=== PATIENT | male | born 1955 | race Caucasian/White ===

== ENCOUNTER → 2018-02-09 | Outpatient (CLI) | payer OTHER | END | disposition home or self-care (01) | LOC: SHCH 14:18 | PROVIDERS: ATTEND Internal Medicine Cardiovascular Disease | DX: I87.2 Venous insufficiency (chronic) (peripheral) (principal) | CPT/HCPCS: 93970 ==

== ENCOUNTER 2019-11-23 07:22 | Day surgery (SDC) | payer MEDICARE ==
[2019-11-20 13:32] LABS: BASOPHILS % (AUTO) 0.8 % (0.0-5.0); EOSINOPHILS % (AUTO) 4.4 % (0.0-8.0); HEMATOCRIT 45.6 % (42-54); LYMPHOCYTES % (AUTO) 22.1 % (21.0-51.0); MEAN CORPUSCULAR HEMOGLOBIN 29.9 pg (27.0-33.0); MEAN CORPUSCULAR HGB CONC 32.9 g/dL (32.0-36.0); MEAN CORPUSCULAR VOLUME 90.8 fL (79-99); MONOCYTES % (AUTO) 7.4 % (3.0-13.0); NEUTROPHILS % (AUTO) 64.3 % (40.0-77.0); PLATELET COUNT (AUTO) 239 K/uL (130-400); RED BLOOD CELL COUNT(AUTO) 5.02 MIL/uL (4.50-6.20); RED CELL DISTRIBUTION WIDTH 14.4 % (11.0-15.5); WHITE BLOOD COUNT (AUTO) 7.9 K/uL (4.8-10.8)
[2019-11-20 13:41] LABS: APPEARANCE,URINE Clear (CLEAR); BILIRUBIN,URINE Negative (NEGATIVE); COLOR,URINE Yellow (YELLOW); GLUCOSE, URINE (UA) 500 mg/dL (NEGATIVE); KETONES,URINE Negative (NEGATIVE); LEUKOCYTE ESTERASE ,URINE Negative (NEGATIVE); NITRATE,URINE Negative (NEGATIVE); OCCULT BLOOD,URINE Negative (NEGATIVE); PROTEIN,URINE Trace mg/dL (NEGATIVE)
[2019-11-20 13:44] LABS: CREATININE 1.4 mg/dL (0.5-1.5); POTASSIUM 4.4 mmol/L (3.5-5.1)
[2019-11-20 13:46] LABS: INR 0.92 (0.85-1.15)
[2019-11-20 13:47] LABS: BACTERIA,URINE Rare /HPF (None Seen); RBC,URINE 0-1 /HPF (0-1); SQUAMOUS EPITHELIAL CELL,UR Rare /HPF (0-2); WBC,URINE 0-1 /HPF (0-1)
[2019-11-20 13:51] VITALS: BP 173/92
--- NOTE | 2019-11-22 16:05 | NUR ---
EKG ABNORMAL EKG REPORTED TO RADHA BURROUGHS TO PROCEED WITH SURGERY
[2019-11-23] VITALS (25 sets, daily range): BP systolic 141–190; BP diastolic 78–116
[~2019-11-23] VITALS: Ht 198.1 cm; Wt 132.0 kg
[~2019-11-23 07:22] MED LIST: CARV12.511 PO; CEFTRIAXONE SODIUM 1 GM IVP SCH; EZET10TA48 PO; GENTAMICIN SULFATE 400 MG in SODIUM CHLORIDE 0.9% 100 ML IV SCH; GLIM2TAB30 PO; LOSA1TAB37 PO; METF-527 PO; TAMS-1 PO; TRIA15CR48 TP
[2019-11-23] MEDS ORDERED: SODIUM CHLORIDE 0.9% 1000ML 1,000 ML IV ONE (07:40)
[2019-11-23] MEDS ORDERED: PROPOFOL 10 MG/ML 20ML VIAL IV ONE (08:02)
[2019-11-23] MEDS ORDERED: LIDOCAINE PF 2% 5ML ABBOJECT ONE (08:02)
[2019-11-23] MEDS ORDERED: FENTANYL CITRATE PF 50 MCG/1 ML 2ML VIAL ONE ×2 (08:03→09:49)
[2019-11-23] MEDS ORDERED: EPHEDRINE SULFATE 50 MG/ML AMPULE ONE (09:04)
--- NOTE | 2019-11-23 11:05 | NUR ---
PT DRESSING INTACT RT CHEST, DRY. Addendum: 11/23/19 at 1308 by ELIZABETH APPIAH RN RN WRONG PT
[2019-11-23] MEDS ORDERED: ONDANSETRON HCL 4 MG/2 ML VIAL ONE (11:06)
--- NOTE | 2019-11-23 11:08 | NUR ---
4mg of zofran given slow IVP for nausea only
[2019-11-23] MEDS ORDERED: LABETALOL 20 MG/4 ML DISP.SYRIN IV ONE (11:19)
[2019-11-23] MEDS ORDERED: HYDRALAZINE HCL 20 MG/ML VIAL ONE (11:46)
[2019-11-23] MEDS ORDERED: MEPERIDINE-PF 25 MG/ML SYG ONE (12:09)
--- NOTE | 2019-11-23 12:30 | NUR ---
post post received pt from [facility], s/p greenlight laser , [address] in [address] 20 [place] with CBI. Clear yellow urine noted. pt awake and alert, dressing noted to tip of penis dry and intact, vs stable on arrival. spouse at bedside.
--- NOTE | 2019-11-23 12:45 | NUR ---
fc leg bag applied by lewis herndon rn. pt / spouse intructed on leg bag and how to empty bag.
[2019-11-23] MEDS ORDERED: HYDROCODONE/ACETAMINOPHEN 5/325 MG TAB ONE (12:59)
[2019-11-23] MEDS ORDERED: OPIUM/BELLADONNA ALKALOIDS 1 EACH SUPP.RECT RC PRN (13:00)
[2019-11-23] MEDS ORDERED: HYDROCODONE/ACETAMINOPHEN 5/325 MG TAB PO PRN (13:15)
--- NOTE | 2019-11-23 13:15 | NUR ---
dc dc instructions given to pt's spouse with rx, instructed on new med regimen, king care, how to apply bacitracian ointment to urethral meatus bid for 4 days, how to empty king bag . pt spouse verbalized understanding . piv removed, site asymptomatic
--- NOTE | 2019-11-23 13:30 | NUR ---
dc pt dc home via w[place], no distress noted. king leg bag in place. pt accompanied by spouse
[2019-11-24] MEDS ORDERED: BACITRACIN 28.4 GM OINT TP SCH (09:00)
== END 2019-11-23 13:30 | disposition home or self-care (01) ==
LOC: DAH 07:22
PROVIDERS: ATTEND Urology
DX: N40.1 Benign prostatic hyperplasia with lower urinary tract symptoms (principal); I25.10 Atherosclerotic heart disease of native coronary artery without angina pectoris; E13.21 Other specified diabetes mellitus with diabetic nephropathy; I25.2 Old myocardial infarction; Z95.5 Presence of coronary angioplasty implant and graft; Z79.899 Other long term (current) drug therapy; Z88.8 Allergy status to other drugs, medicaments and biological substances; Z79.84 Long term (current) use of oral hypoglycemic drugs; Z72.89 Other problems related to lifestyle; Z87.891 Personal history of nicotine dependence; Z82.5 Family history of asthma and other chronic lower respiratory diseases
CPT/HCPCS: 36415; 52648; 71045; 80048; 81001; 82948 ×3; 85025; 85610; 85730; 87088; 88305; 93005; A4215; A4221; A4222; A4223 ×2; A4354; A4600; A4663; A6260; J0360; J0696; J1580; J2001; J2405; J2704; J3010 ×2; J3490; J7030 ×3; J2175

== ENCOUNTER → 2020-03-04 | Outpatient (CLI) | payer MEDICARE ==
[~2020-03-04] MED LIST changes: -CEFTRIAXONE SODIUM 1 GM IVP SCH; -GENTAMICIN SULFATE 400 MG in SODIUM CHLORIDE 0.9% 100 ML IV SCH; +REGADENOSON 0.4 MG/5 ML PF SYG IVP SCH
== END | disposition home or self-care (01) ==
LOC: SHCH 08:38
PROVIDERS: ATTEND Internal Medicine Cardiovascular Disease
DX: I25.10 Atherosclerotic heart disease of native coronary artery without angina pectoris (principal)
CPT/HCPCS: 78452; 93017; 96374; A9500 ×2; J2785

== ENCOUNTER → 2020-03-21 | Outpatient (CLI) | payer MEDICARE ==
[~2020-03-21] MED LIST changes: -REGADENOSON 0.4 MG/5 ML PF SYG IVP SCH
== END | disposition home or self-care (01) ==
LOC: SHCH 15:36
PROVIDERS: ATTEND Internal Medicine Cardiovascular Disease
DX: I51.7 Cardiomegaly (principal); I25.5 Ischemic cardiomyopathy
CPT/HCPCS: 93306; 93356

== ENCOUNTER → 2020-11-05 | Outpatient (CLI) | payer MEDICARE | END | disposition home or self-care (01) | LOC: SHCH 15:13 | PROVIDERS: ATTEND Internal Medicine Cardiovascular Disease | DX: I70.293 Other atherosclerosis of native arteries of extremities, bilateral legs (principal) | CPT/HCPCS: 93925 ==

== ENCOUNTER 2020-12-29 16:20 | Emergency (ER) | payer MEDICARE ==
[2020-12-29 17:51] LABS: BASOPHILS % (AUTO) 0.6 % (0.0-5.0); EOSINOPHILS % (AUTO) 4.1 % (0.0-8.0); HEMATOCRIT 44.2 % (42-54); MEAN CORPUSCULAR HEMOGLOBIN 30.3 pg (27.0-33.0); MEAN CORPUSCULAR HGB CONC 34.6 g/dL (32.0-36.0); MEAN CORPUSCULAR VOLUME 87.5 fL (79-99); MONOCYTES % (AUTO) 7.8 % (3.0-13.0); NEUTROPHILS % (AUTO) 66.9 % (40.0-77.0); PLATELET COUNT (AUTO) 264 K/uL (130-400); RED BLOOD CELL COUNT(AUTO) 5.05 MIL/uL (4.50-6.20); RED CELL DISTRIBUTION WIDTH 13.3 % (11.0-15.5); WHITE BLOOD COUNT (AUTO) 8.4 K/uL (4.8-10.8)
[2020-12-29 17:59] LABS: CREATININE 1.5 mg/dL (0.5-1.5); POTASSIUM 3.8 mmol/L (3.5-5.1)
== END 2020-12-29 19:04 | disposition home or self-care (01) ==
LOC: EDH 16:20
DX: L03.116 Cellulitis of left lower limb (principal); E11.9 Type 2 diabetes mellitus without complications; I10 Essential (primary) hypertension; Z87.891 Personal history of nicotine dependence
CPT/HCPCS: 36415; 73630; 80048; 85025

== ENCOUNTER → 2021-02-06 | Outpatient (CLI) | payer MEDICARE ==
[~2021-02-06] MED LIST changes: +IOHEXOL 350 MG/ML 100ML INFUS..BTL IV ONE
== END | disposition home or self-care (01) ==
LOC: RAH 07:48
PROVIDERS: ATTEND Internal Medicine Cardiovascular Disease
DX: S81.802A Unspecified open wound, left lower leg, initial encounter (principal); R91.8 Other nonspecific abnormal finding of lung field; R91.1 Solitary pulmonary nodule; K80.20 Calculus of gallbladder without cholecystitis without obstruction; K57.30 Diverticulosis of large intestine without perforation or abscess without bleeding; I71.4 Abdominal aortic aneurysm, without rupture; I70.0 Atherosclerosis of aorta; I70.293 Other atherosclerosis of native arteries of extremities, bilateral legs; X58.XXXA Exposure to other specified factors, initial encounter; Y93.89 Activity, other specified; Y92.89 Other specified places as the place of occurrence of the external cause; Y99.8 Other external cause status
CPT/HCPCS: 75635; Q9967 ×2

== ENCOUNTER → 2021-10-06 | Outpatient (CLI) | payer MEDICARE ==
[~2021-10-06] VITALS: Ht 188 cm; Wt 130.6 kg
[~2021-10-06] MED LIST changes: -IOHEXOL 350 MG/ML 100ML INFUS..BTL IV ONE; +REGADENOSON 0.4 MG/5 ML PF SYG IVP SCH
== END | disposition home or self-care (01) ==
LOC: SHCH 09:13
PROVIDERS: ATTEND Internal Medicine Cardiovascular Disease
DX: I25.5 Ischemic cardiomyopathy (principal); I45.10 Unspecified right bundle-branch block; R94.39 Abnormal result of other cardiovascular function study; Z95.1 Presence of aortocoronary bypass graft; R06.02 Shortness of breath
CPT/HCPCS: 78452; 93017; 96374; A9500 ×2; J2785

== ENCOUNTER → 2021-12-30 | Outpatient (CLI) | payer MEDICARE ==
[~2021-12-30] MED LIST changes: -REGADENOSON 0.4 MG/5 ML PF SYG IVP SCH
== END ==
LOC: RAH 16:44
PROVIDERS: ATTEND Physician Assistant
DX: M54.51 Vertebrogenic low back pain (principal); M47.817 Spondylosis without myelopathy or radiculopathy, lumbosacral region
CPT/HCPCS: 72110

== ENCOUNTER → 2022-09-21 | Outpatient (CLI) | payer MEDICARE ==
[2022-09-21 12:58] LABS: BASOPHILS % (AUTO) 0.5 % (0.0-5.0); EOSINOPHILS % (AUTO) 3.8 % (0.0-8.0); HEMATOCRIT 46.3 % (42-54); LYMPHOCYTES % (AUTO) 18.2 % (21.0-51.0); MEAN CORPUSCULAR HEMOGLOBIN 30.2 pg (27.0-33.0); MEAN CORPUSCULAR VOLUME 91.3 fL (79-99); MONOCYTES % (AUTO) 6.4 % (3.0-13.0); NEUTROPHILS % (AUTO) 70.6 % (40.0-77.0); PLATELET COUNT (AUTO) 225 K/uL (130-400); RED BLOOD CELL COUNT(AUTO) 5.07 MIL/uL (4.50-6.20); RED CELL DISTRIBUTION WIDTH 13.3 % (11.0-15.5); WHITE BLOOD COUNT (AUTO) 7.7 K/uL (4.8-10.8)
[2022-09-21 13:14] LABS: ALBUMIN 3.8 g/dL (3.5-5.0); CREATININE 1.4 mg/dL (0.5-1.5); POTASSIUM 4.4 mmol/L (3.5-5.1); TOTAL PROTEIN, SERUM 7.5 g/dL (6.0-8.3)
== END | disposition home or self-care (01) ==
LOC: LAB 08:41
PROVIDERS: ATTEND Internal Medicine Cardiovascular Disease
DX: I10 Essential (primary) hypertension (principal); E78.5 Hyperlipidemia, unspecified
CPT/HCPCS: 36415; 80053; 85025

== ENCOUNTER → 2022-09-25 | Outpatient (CLI) | payer MEDICARE ==
[~2022-09-25] MED LIST changes: +IOHEXOL 350 MG/ML 100ML INFUS..BTL IV ONE
== END | disposition home or self-care (01) ==
LOC: RAH 08:40
PROVIDERS: ATTEND Internal Medicine Cardiovascular Disease
DX: I25.10 Atherosclerotic heart disease of native coronary artery without angina pectoris (principal)
CPT/HCPCS: 75574; Q9967 ×2

== ENCOUNTER → 2022-10-07 | Outpatient (CLI) | payer MEDICARE ==
[~2022-10-07] MED LIST changes: -IOHEXOL 350 MG/ML 100ML INFUS..BTL IV ONE
== END | disposition home or self-care (01) ==
LOC: SHCH 13:47
PROVIDERS: ATTEND Internal Medicine Cardiovascular Disease
DX: R01.1 Cardiac murmur, unspecified (principal); E78.5 Hyperlipidemia, unspecified
CPT/HCPCS: 93306

== ENCOUNTER → 2023-06-12 | Outpatient (CLI) | payer MEDICARE | END | disposition home or self-care (01) | LOC: SHCH 14:52 | PROVIDERS: ATTEND Internal Medicine Cardiovascular Disease | DX: I65.23 Occlusion and stenosis of bilateral carotid arteries (principal); R09.89 Other specified symptoms and signs involving the circulatory and respiratory systems | CPT/HCPCS: 93880 ==

== ENCOUNTER → 2023-07-08 | Outpatient (CLI) | payer MEDICARE | END | disposition home or self-care (01) | LOC: OIH 10:30 | PROVIDERS: ATTEND Internal Medicine | DX: R63.4 Abnormal weight loss (principal); I13.10 Hypertensive heart and chronic kidney disease without heart failure, with stage 1 through stage 4 chronic kidney disease, or unspecified chronic kidney disease; N18.9 Chronic kidney disease, unspecified; E11.22 Type 2 diabetes mellitus with diabetic chronic kidney disease; Z98.890 Other specified postprocedural states | CPT/HCPCS: 71046 ==

== ENCOUNTER → 2024-04-08 | Outpatient (CLI) | payer MEDICARE | END | disposition home or self-care (01) | LOC: SHCH 08:30 | PROVIDERS: ATTEND Internal Medicine Cardiovascular Disease | DX: I70.0 Atherosclerosis of aorta (principal); Z95.1 Presence of aortocoronary bypass graft | CPT/HCPCS: 93978 ==

== ENCOUNTER → 2024-05-01 | Outpatient (CLI) | payer MEDICARE ==
[2024-05-01] MEDS: REGADENOSON 0.4 MG/5 ML PF SYG IVP ONE (10:04)
== END | disposition home or self-care (01) ==
LOC: SHCH 07:43
PROVIDERS: ATTEND Internal Medicine Cardiovascular Disease
DX: I51.7 Cardiomegaly (principal); I25.10 Atherosclerotic heart disease of native coronary artery without angina pectoris; R06.00 Dyspnea, unspecified
CPT/HCPCS: 78452; 93017; J2785; A9500 ×2

== ENCOUNTER → 2024-08-15 | Outpatient (CLI) | payer MEDICARE ==
--- NOTE | 2024-08-16 08:43 | HMCSR ---
APPROVED REPORT EXAM: Two-dimensional and M-mode echocardiogram with Doppler and color Doppler. INDICATION ICD: I42.9 Cardiomyopathy, unspecified 2D Dimensions RVDd3.5 cmLVEF(%)14.2 (>50%)LVED Vol(simp.)297.0 mL IVSd1.7 (0.7-1.1cm)FS(%)6 %LVES Vol(simp.)230.0 mL LVDd6.5 (3.8-5.6cm)Ao Root(2D)4.4 (2.0-3.7cm)LVEF(%, simp.)23 % PWd1.2 (0.7-1.1cm)LVOT diam2.8 (1.8-2.4cm)LA ESV INDEX (BP)40.89 mL/m2 LVDs6.1 (2.5-4.0cm)IVC diam2.4 cm Aortic Valve AoV Vmax1.8 m/Steve Peak GR12.3 mmHgLVOT Vmax0.5 m/s AoV VTI0.4 mAo Mean GR6.7 mmHgLVOT VTI0.12 m BETH (VMAX)1.9 cm2AVA (VTI) 1.9 cm2 Mitral Valve MV E Vmax76.7 cm/sDECEL Nlqb630 ms MV A Vmax56.6 cm/sP 1/2 T46 ms E/A ratio1.4MVA (PHT)4.8 cm2 MR Max PG68 mmHg TDI E/E' Zxgtef90.8E/E' Lateral8.1 Pulmonary Valve PV Vmax0.7 m/sPV VTI0.13 mPV Mean GR1 mmHg PV Peak GR1.8 mmHg Tricuspid Valve RAP (EST) 8 mmHg Left Ventricle The left ventricle is severely dilated. Inferior hypokinesis. There is moderate concentric left ventr icular hypertrophy. LVEF is 35-40%. Indeterminate diastolic dysfunction. Right Ventricle The right ventricle is normal size. Right ventricular systolic function is mildly to moderately reduc ed. Atria The left atrium is mildly dilated. The right atrium is mildly dilated. Aortic Valve Aortic valve is trileaflet. Aortic valve is moderately calcified. Lambl's excrescene noted. Trace aor tic regurgitation. There is no aortic valvular stenosis. Mitral Valve Mitral valve leaflets are mildly sclerotic but open well. Mitral regurgitation is trace to mild. Ther e is no mitral valve stenosis. Tricuspid Valve The tricuspid valve leaflets appear normal. There is mild tricuspid regurgitation. Pulmonic Valve The pulmonic valve leaflets are thin and pliable; valve motion is normal. There is trace pulmonic mine vular regurgitation. Great Vessels Aortic root is moderately dilated. IVC is dilated and collapses >50% with inspiration. Pericardium No pericardial effusion. Other Information Quality : Technically Limited Technically limited study due to body habitus. Conclusion The left ventricle is severely dilated. LVEF is 35-40%. Inferior hypokinesis. Aortic valve is trileaflet. Aortic valve is moderately calcified. Lambl's excrescene noted. Trace aortic regurgitation. Mitral regurgitation is trace to mild. There is mild tricuspid regurgitation.
== END | disposition home or self-care (01) ==
LOC: SHCH 13:18
PROVIDERS: ATTEND Internal Medicine Cardiovascular Disease
DX: I08.3 Combined rheumatic disorders of mitral, aortic and tricuspid valves (principal); I42.9 Cardiomyopathy, unspecified
CPT/HCPCS: 93306

== ENCOUNTER 2024-11-16 09:47 | Day surgery (SDC) | payer MEDICARE ==
--- NOTE | 2024-11-13 13:31 | EKG ---
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 : 1955 Requested By: DORYS FOUNTAIN Order Number: [id number] Reading MD: Jignesh Alejandro Measurements Intervals [place] Rate: 66 P: 184 [place]: 199 QRS: 214 QRSD: 220 T: 62 QT: 487 QTc: 509 Interpretive Statements Right and left arm electrode reversal, interpretation assumes no reversal Sinus rhythm Left bundle branch block Compared to ECG 10/30/2024 10:27:49 Left bundle branch block still present ST (T wave) deviation now present Sinus rhythm no longer present Left-axis deviation no longer present Electronically Signed On 11-14-2024 23:28:50 CDT by Jignesh Alejandro Please click the below link to view image of tracing.
[2024-11-13 13:36] LABS: BASOPHILS # (AUTO) 0.05 K/uL (0.00-0.20); BASOPHILS % (AUTO) 0.8 % (0.0-5.0); EOSINOPHILS # (AUTO) 0.11 K/uL (0.00-0.70); EOSINOPHILS % (AUTO) 1.8 % (0.0-8.0); HEMATOCRIT 43.8 % (42-54); IMMATURE GRANULOCYTE ABSOLUTE 0.04 K/uL (0-1); LYMPHOCYTES # (AUTO) 1.8 K/uL (1.0-4.8); LYMPHOCYTES % (AUTO) 28.8 % (21.0-51.0); MEAN CORPUSCULAR HEMOGLOBIN 30.2 pg (27.0-33.0); MEAN CORPUSCULAR HGB CONC 33.6 g/dL (32.0-36.0); MEAN CORPUSCULAR VOLUME 90.1 fL (79-99); MONOCYTES # (AUTO) 0.5 K/uL (0.1-1.0); MONOCYTES % (AUTO) 7.4 % (3.0-13.0); NEUTROPHILS # (AUTO) 3.7 K/uL (1.8-7.7); NEUTROPHILS % (AUTO) 60.5 % (40.0-77.0); PLATELET COUNT (AUTO) 230 K/uL (130-400); RED BLOOD CELL COUNT(AUTO) 4.86 MIL/uL (4.50-6.20); RED CELL DISTRIBUTION WIDTH 14.8 % (11.0-15.5); WHITE BLOOD COUNT (AUTO) 6.1 K/uL (4.8-10.8)
[2024-11-13 13:40] VITALS: BP 103/59; PULSE 74; RESP 18; TEMP 97.2
[2024-11-13 13:47] LABS: CREATININE 1.7 mg/dL (0.5-1.3); POTASSIUM 4.5 mmol/L (3.5-5.1)
[2024-11-13 13:49] LABS: INR 1.01 (0.85-1.15); PROTHROMBIN TIME 10.7 SEC (9.6-11.6)
[2024-11-13 13:50] LABS: PARTIAL THROMBOPLASTIN TIME 37.6 SEC (26.3-35.5)
[2024-11-13 13:50] LABS: APPEARANCE,URINE CLEAR (CLEAR); BILIRUBIN,URINE NEGATIVE (NEGATIVE); COLOR,URINE LIGHT-YELLOW (YELLOW); GLUCOSE, URINE (UA) NEGATIVE (NEGATIVE); KETONES,URINE NEGATIVE (NEGATIVE); LEUKOCYTE ESTERASE ,URINE NEGATIVE Leu/uL (NEGATIVE); NITRATE,URINE NEGATIVE (NEGATIVE); OCCULT BLOOD,URINE NEGATIVE (NEGATIVE); PROTEIN,URINE NEGATIVE (NEGATIVE); UROBILINOGEN,URINE 0.2 mg/dL (0.2-1.0)
[2024-11-13 13:55] LABS: ADD UA MICROSCOPIC NO
[2024-11-13 14:24] LABS: B-TYPE NATRIURETIC PEPTIDE 88 pg/mL (0-100)
--- NOTE | 2024-11-13 15:02 | HMCIMG ---
Exam Type: CHEST 1VW Clinical Information: PRE OP Comparison: None Findings: There is cardiomegaly and there is status post median sternotomy. The lungs are clear of infiltrates. Impression: Clear lungs.
--- NOTE | 2024-11-13 15:55 | NUR ---
report reported b/ps to alexandria gross np. also informed pt on losartan with hctz but was not on recent hospital stay discharge meds. received instructions to inform pt to hold until reeval on procedure date by dr rebolledo. spouse notified and voiced understanding
--- NOTE | 2024-11-15 13:10 | NUR ---
REPORTED BMP RESULTS TO KAJAL IBRAHIM NP FOR DR. SAUCEDA. OK TO PROCEED. NEW ORDER RECEIVED TO START NS @ 80ML/HR UPON PATIENT ARRIVAL IN AM
[~2024-11-16] VITALS: Ht 182.9 cm; Wt 110.6 kg
[2024-11-16] VITALS (11 sets, daily range): BP systolic 124–143; BP diastolic 66–76; PULSE 61–70; RESP 13–18; TEMP 97.2–97.5
[~2024-11-16 09:47] MED LIST changes: +AEC81 PO; -CARV12.511 PO; +CARV12.580 PO; +FURO20TA4 PO; -GLIM2TAB30 PO; -LOSA1TAB37 PO; +LOSA1TAB42 PO; +METF-446 PO; -METF-527 PO; +NITR0.4T50 SL; +SPIR25TA6 PO; -TRIA15CR48 TP; +VIBE75TA PO
[2024-11-16] MEDS ORDERED: IOHEXOL 350 MG/ML 100ML INFUS..BTL IV ONE (10:40)
[2024-11-16] MEDS ORDERED: LIDOCAINE HCL 400MG/20ML VIAL ONE (10:40)
[2024-11-16] MEDS ORDERED: HEParin 10,000 UNIT/10ML (1,000 UNIT/ML) VIAL ONE (10:40)
[2024-11-16] MEDS ORDERED: HEParin-NS 1,000 UNIT/500 ML 1,000 ML IV ONE (10:41)
[2024-11-16] MEDS ORDERED: IOHEXOL-350 75 ML VIAL IV ONE (10:43)
[2024-11-16] MEDS: 0.9%NACL 1000ML 1,000 ML IV SCH (11:08)
[2024-11-16] MEDS ORDERED: MIDAZOLAM HCL 1 MG/ML 2ML VIAL ONE (11:09)
[2024-11-16] MEDS ORDERED: DEXTROSE 50%-WATER 50 ML DISP.SYRIN IV PRN (12:00)
[2024-11-16] MEDS ORDERED: GLUCAGON 1MG KIT 1 MG ML IM PRN (12:00)
--- NOTE | 2024-11-16 12:03 | PN ---
[facility] Cardiology Progress Note After informed consent the patient was prepped and draped in the usual fashion. He received a total of 20 cc of 2% xylocaine in the right inguinal area. Also received 2 mg of Versed administered in divided doses to achieve adequate level of conscious sedation. A six Gabonese sheath was introduced into the right femoral artery using modified Seldinger technique. Krystle four left six [place]ones[place] diagnostic catheter was advanced over guidewire to the aortic root. Wire was removed and catheter engaged in the left main coronary artery. The left co ronary system was visualized multiple planes the catheter was removed over a a wire. A Krystle four right six [place]ones[place] diagnostic catheter was advanced over guidewire to the aortic root. Wire was removed and catheter engaged into the [place] right coronary artery which was visualized. The catheter was then manipulated to the origin of the saphenous graft to the right coronary artery which was visualized and to the saphenous graft to the obtuse marginal artery which was visualized. The catheter was then manipulated to the origin of the DIETZ graft to but could not be selectively engaged. This was exchanged over a wire. The short sheath was exchanged for a 25 cm six [place]ones[place] sheath over the wire. An AMT six [place]ones[place] diagnostic catheter was then advanced over guidewire to the aortic root. Catheter was manipulated to the origin of the DIETZ graft which was visualized. The catheter was removed and a sheathogram performed. A six [place] Angio-Seal closure device applied. The entire procedure was well tolerated without complications. 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 The saphenous graft to the right coronary artery is occluded. The left main coronary artery has an 80% distal stenosis. Has ostial circumflex artery has an 80% stenosis and there was a 70% mid stenosis this is a nondominant vessel. The LAD is totally occluded after the 1st diagonal artery and the LAD has a patent DIETZ graft with no significant distal disease. The diagonal artery is free of obstruction. In summary the there was a patent DIETZ graft occluded vein graft to the obtuse marginal artery occluded vein graft to the obtuse marginal artery and occluded [place] right coronary artery. The circumflex artery is nondominant and does not appear to be easily amenable to revascularization. Medical management is advised. We will plan on a 90 day echo to reassess ejection fraction on medical management. Report dictated by Chris SAUCEDA,CHRIS Webber MD Nov 16, 2024 12:03
== END 2024-11-16 16:20 | disposition home or self-care (01) ==
LOC: DAH 09:47
PROVIDERS: ATTEND Internal Medicine Cardiovascular Disease
DX: R94.39 Abnormal result of other cardiovascular function study (principal); I25.10 Atherosclerotic heart disease of native coronary artery without angina pectoris; T82.857A Stenosis of other cardiac prosthetic devices, implants and grafts, initial encounter; I11.0 Hypertensive heart disease with heart failure; I50.22 Chronic systolic (congestive) heart failure; I25.2 Old myocardial infarction; E11.40 Type 2 diabetes mellitus with diabetic neuropathy, unspecified; I44.7 Left bundle-branch block, unspecified; I25.5 Ischemic cardiomyopathy; E11.51 Type 2 diabetes mellitus with diabetic peripheral angiopathy without gangrene; I87.2 Venous insufficiency (chronic) (peripheral); E66.9 Obesity, unspecified; Z68.34 Body mass index [BMI] 34.0-34.9, adult; I71.40 Abdominal aortic aneurysm, without rupture, unspecified; E78.5 Hyperlipidemia, unspecified; Z79.82 Long term (current) use of aspirin; Z79.899 Other long term (current) drug therapy; Y71.2 Prosthetic and other implants, materials and accessory cardiovascular devices associated with adverse incidents
CPT/HCPCS: 80048; 83880; 85025; 85610; 85730; 81003; 36415; 71045; 93005; 93455; 82948; C1894 ×2; C1760; Q9965; J3490; J2250; J1644; Q9967; A4215 ×2; A4222; A4221; A4663; A4216; A4606; A4223 ×3; 96360; 99156; 99157